=== PATIENT | female | born 1960 | race African-American/Black ===

== ENCOUNTER 2016-10-09 10:38 | Emergency (ER) | payer MEDICAID, OTHER ==
[~2016-10-09] VITALS: Ht 172.7 cm; Wt 97.0 kg
[2016-10-09 14:25] VITALS: BP 144/62
== END 2016-10-09 14:51 | disposition home or self-care (01) ==
LOC: ER 12:36
DX: M77.31 Calcaneal spur, right foot (principal); F17.210 Nicotine dependence, cigarettes, uncomplicated; Z90.710 Acquired absence of both cervix and uterus
CPT/HCPCS: 73650; 99284

== ENCOUNTER 2019-03-17 14:19 | Emergency (ER) | payer OTHER ==
[~2019-03-17] VITALS: Ht 175.3 cm; Wt 115.0 kg
[2019-03-17] MEDS ORDERED: MECLIZINE 25MG TABLET PO ONE (20:30)
[2019-03-17 22:30] VITALS: BP 135/82
== END 2019-03-17 22:50 | disposition home or self-care (01) ==
LOC: ER 14:25
DX: H81.10 Benign paroxysmal vertigo, unspecified ear (principal); I10 Essential (primary) hypertension; Z90.710 Acquired absence of both cervix and uterus; Z98.890 Other specified postprocedural states
CPT/HCPCS: 99282; J8597; Z7610